=== PATIENT | male | born 1945 | race Caucasian/White ===

== ENCOUNTER 2017-02-23 20:17 | Emergency (ER) | payer OTHER ==
[~2017-02-23] VITALS: Ht 177.8 cm; Wt 106.6 kg
[~2017-02-23 20:17] MED LIST: ACID REDUCER20 MG PO; ALDACTONE25 MG PO; ALDACTONE50 MG PO; ALLOPURINOL 30300 M1 PO; ANTACID MAXIMU355 ML PO; ASPIRIN BUFFER325 M1 PO; ATIVAN1 MG PO; BENADRYL25 MG PO; BISACODYL SUPP10 MG RECTAL; COLACE100 MG PO; DEX4 GLUCOSE1 EACH PO; DEXTROSE 5025 GM/SYR IV PUSH; FLOMAX0.4 MG PO; GLUCAGEN1 MG IM; GLUCOPHAGE1000 MG PO; HYDROCODON-ACE1 EAC5 PO; HYDROCODON-ACE1 EAC7 PO; K-DUR 20 MEQ T20 MEQ PO; KLOR-CON 1010 MEQ PO; LEVEMIR SUBQ; LIDODERM 5%1 PATC1 TOP; MAG DELAY64 MG PO; METFORMIN HCL500 MG PO; METOLAZONE 5 MG5 MG PO; MOM PO; NOVOLOG100 UNIT/1 SQ; PERCOCET 5-3251 EACH PO; PROTONIX40 M2 PO; SENNA PO; SKELAXIN 800 M800 M1 PO; SONATA10 MG PO; SORINE80 MG PO; TEARS NATURALE1 EACH OPHTHALMIC; TESSALON PERLE100 M1 PO; TRINATE TABLET1 TAB PO; TYLENOL325 MG PO; VITAMIN B-1100 M1 PO; WELLBUTRIN SR150 MG PO; XOPENEX0.63 MG/3 IH; ZAROXOLYN10 MG PO
== END 2017-02-23 22:52 | disposition home or self-care (01) ==
LOC: ER 20:17
DX: S01.311A Laceration without foreign body of right ear, initial encounter (principal); S00.431A Contusion of right ear, initial encounter; I11.0 Hypertensive heart disease with heart failure; I50.9 Heart failure, unspecified; K21.9 Gastro-esophageal reflux disease without esophagitis; G47.00 Insomnia, unspecified; N40.0 Benign prostatic hyperplasia without lower urinary tract symptoms; E78.5 Hyperlipidemia, unspecified; F41.9 Anxiety disorder, unspecified; M41.9 Scoliosis, unspecified; M19.90 Unspecified osteoarthritis, unspecified site; Z88.5 Allergy status to narcotic agent; W22.8XXA Striking against or struck by other objects, initial encounter; Y93.89 Activity, other specified; Y92.89 Other specified places as the place of occurrence of the external cause; Y99.9 Unspecified external cause status

== ENCOUNTER 2017-03-04 17:24 | Emergency (ER) | payer OTHER ==
[~2017-03-04] VITALS: Ht 177.8 cm; Wt 108.0 kg
[2017-03-04] MEDS ORDERED: MOBIC7.5 MG PO (18:39)
== END 2017-03-04 19:34 | disposition home or self-care (01) ==
LOC: ER 17:24
DX: S66.911A Strain of unspecified muscle, fascia and tendon at wrist and hand level, right hand, initial encounter (principal); S20.211A Contusion of right front wall of thorax, initial encounter; W18.30XA Fall on same level, unspecified, initial encounter; Y93.89 Activity, other specified; Y92.89 Other specified places as the place of occurrence of the external cause; Y99.9 Unspecified external cause status; I11.0 Hypertensive heart disease with heart failure; E11.42 Type 2 diabetes mellitus with diabetic polyneuropathy; N40.0 Benign prostatic hyperplasia without lower urinary tract symptoms; K21.9 Gastro-esophageal reflux disease without esophagitis; I50.9 Heart failure, unspecified; M19.90 Unspecified osteoarthritis, unspecified site; G47.00 Insomnia, unspecified; F41.9 Anxiety disorder, unspecified; E78.5 Hyperlipidemia, unspecified; I48.91 Unspecified atrial fibrillation; Z88.5 Allergy status to narcotic agent

== ENCOUNTER 2017-08-31 16:52 | Emergency (ER) | payer OTHER ==
[~2017-08-31] VITALS: Ht 177.8 cm; Wt 104.3 kg
[~2017-08-31 16:52] MED LIST changes: +MOBIC7.5 MG PO
== END 2017-08-31 18:53 | disposition home or self-care (01) ==
LOC: ER 16:52
DX: S01.01XA Laceration without foreign body of scalp, initial encounter (principal); E11.9 Type 2 diabetes mellitus without complications; I50.9 Heart failure, unspecified; M17.0 Bilateral primary osteoarthritis of knee; M16.0 Bilateral primary osteoarthritis of hip; K21.9 Gastro-esophageal reflux disease without esophagitis; I10 Essential (primary) hypertension; M41.9 Scoliosis, unspecified; M47.9 Spondylosis, unspecified; G89.29 Other chronic pain; F41.9 Anxiety disorder, unspecified; F32.9 Major depressive disorder, single episode, unspecified; E78.5 Hyperlipidemia, unspecified; N40.0 Benign prostatic hyperplasia without lower urinary tract symptoms; I48.91 Unspecified atrial fibrillation; G20 Parkinson's disease; Z88.6 Allergy status to analgesic agent; W19.XXXA Unspecified fall, initial encounter; Y93.89 Activity, other specified; Y92.89 Other specified places as the place of occurrence of the external cause; Y99.8 Other external cause status

== ENCOUNTER 2018-10-18 12:07 | Inpatient (IN) | payer OTHER ==
[2018-10-18] MEDS ORDERED: ALLOPURINOL 10100 M3 PO (13:01)
[2018-10-18] MEDS ORDERED: PROTONIX40 M1 PO (13:02)
[2018-10-18] MEDS ORDERED: CHILDREN'S ASPI81 M1 PO (13:03)
[2018-10-18] MEDS ORDERED: ERGOCALCIF50000 UNIT PO (13:05)
[2018-10-18] MEDS ORDERED: LEXAPRO 10 MG T10 M2 PO ×2 (13:07→22:03)
[2018-10-18] MEDS ORDERED: SINEMET 25-1001 EAC1 PO (13:08)
[2018-10-18] MEDS ORDERED: VITAMIN D1000 UNI1 PO (13:10)
[2018-10-18] MEDS ORDERED: ALBUTEROL2.5 MG/31 INH (13:13)
[2018-10-18] MEDS ORDERED: HYDROCODON-ACE1 EAC7 PO (15:04)
[2018-10-18] MEDS ORDERED: POTASSIUM20 PO (15:06)
[2018-10-18] MEDS ORDERED: ATIVAN0.5 MG PO (15:08)
[2018-10-18 21:11] VITALS: BP 126/69
[2018-10-19 05:37] LABS: HEMATOCRIT 33.2 % (42.0-52.0); HEMOGLOBIN 11.4 gm/dL (14.0-18.0); MCHC 34.3 g/dL (28.0-37.0); MCV 99.1 fL (80.0-100.0); RBC 3.35 mil/uL (4.50-6.00); RDW 14.4 % (10.5-14.5); WBC 8.8 thou/uL (4.0-11.0)
[2018-10-19 06:00] LABS: CALCIUM 8.7 mg/dL (8.5-10.1); CREATININE 0.7 mg/dL (0.7-1.3); POTASSIUM 3.7 mmol/L (3.5-5.1)
--- NOTE | 2018-10-19 07:53 | NUR ---
patient admitted from [facility]. transported via medical van/cart. alert, oriented, forgetful. diagnosed with supernuclear palsy so movements and speech slowed. uses speech board. abd lap sites x 3 with Wagner drain (total 80ml serosang output during shift) denies pain. spouse says that he can feed himself mostly finger foods due to limited dexterity. junito guzman [employer] aware of admit, saw patient.
[2018-10-19 08:15] VITALS: BP 116/65
--- NOTE | 2018-10-19 13:00 | NUR ---
cm visited with pt and at bedside. pt would open and close eye during visit. intro to cm, team meeting and transiting of care. "3 step wide to enter home and then all main level. he has electric wheel chair, fww, transfer chair, takes btx 1 to 2 times per day. has oxygen 2L at bedtime. been to rehab here in 2013 and glad he was able to come here for rehab."/ seth. had eval right before yulia had to go into hospital with phoarlen , he will need rehab when he goes home not sure who we would use since never had any tx just eval prior to hospital. will cont following as needed for dc needs
--- NOTE | 2018-10-19 13:07 | NUR ---
Nutrition: pt admitted to rehab unit with Parkinsons, progressive supranuclear palsy and seen per consult. Recent lap gangrenous cholecystectomy on 10/09 and sepsis dx. reports good appetite but limited use of utensils with above dx/limited dexterity. Eats with his fingers and she cuts up most foods. Currently on Chopped diet/ADA. Knows how to order meals for pt. No current weight taken however reports it is 220#. Weights were over 300# 6 years ago but pt intentionally lost weight at time of DM dx. No recent significant change. Low nutrition risk.
--- NOTE | 2018-10-19 19:55 | NUR ---
ASSUME PT CARE AT 0700. VSS ON RA BUT ON LOWER SIDE. NOTIFIED VIRGEN THAT PT IS ON SOTALOL 80MG BID. SAID PT'S B/P ALWAYS LOW, BUT HIGH WHEN HE CAME TO ER AND NOW LOW AGAIN. OBTAIND PARAMETER FOR B/P. HELD SOTALOL TODAY PER VIRGEN ORDERED. ENCOURAGED PT TO DRINK MORE FLUID. PT UP TO DINNING FOR BREAKFAST AND LUNCH. WAS AT BED SIDE AT DINNER. PT ALERT, HAS SLURRED AND SLOW SPEECH. USES SPEECH BOARD TO COMMUNICATE WITH AND STAFF. ABD LAP SITES X3 DOMENIC. NOEL DRAIN ON RLQ HAD 80CC SEROSAN OUTPUT THIS SHIFT. DRESSING CHANGED D/T SOAK WITH DRAINAGE. DENIES PAIN, SOB. UP WITH A WALKER. WALKS SLOW. ASSISTED TO BATHROOM PER REQUEST. HAD LARGE BM TODAY. ABLE TO USES URINAL WITH ASSISTANCE. OFFERED SUPPORTIVE CARE. LABS AND VITAL SIGNS MONITOR. MEDS GIVEN. PT AND REQUESTS FOR ATIVAN AT HS. PT USES FINGER FOOD, CALLED DOWN TO [facility] BUT PT CAN'T HAVE CHICKEN STRIPPED OR PIZZA D/T BE ON CARB AND HH. NOTIFIED VIRGEN AND OBTAINED ORDER FOR ATIVAN AND REG DIET FOR PT SINCE PT HAS POOR APPETITE. CONTINUE TO GIVE SINEMET ORDERED. BS MONITOR, MEDS GIVEN. PT DENIES PAIN, SOB, N/V. FALL PRECAUTION IN PLACE. CALL LIGHT WITHIN REACH. BED LOW. GAVE REPORT TO NIGHT NURSE TO CONTINUE TO MONITOR.
[2018-10-19 21:29] VITALS: BP 127/53
[2018-10-20 04:06] LABS: GLYCOHEMOGLOBIN (HGB A1C) 5.3 % (4.8-5.6)
--- NOTE | 2018-10-20 04:57 | NUR ---
able to sit up on side of the bed to eat evening meal. improved alertness, slightly better ability to communicate verbally effectively. used word board once in bed, more drowsy. no difficulty taking evening meds. denied pain. NOEL drain - 40ml serosanguinous drainage. abd lap sites, Noel drain dressing D/I. incontinent during the night. discussed ways to improve use of urinal such as calling staff to hold urinal since his dexterity is reduced. able to use call light, turn overhead lights on and off. possible fatigue from todays activities, did not call nurses station and denied need to use urinal when asked.
[2018-10-20 08:30] VITALS: BP 113/63
--- NOTE | 2018-10-20 09:01 | NUR ---
ASSUME PT CARE AT 0700. VSS ON RA B/P 113/63, HR 80. HELD SOTALOL PER ORDERED. ENCOURAGED PT TO DRINK MORE FLUID. OT GAVE PT BED BATH THIS AM. PT UP TO DINNING FOR BREAKFAST WITH SPEECH THERAPY PT ALERT, HAS SLURRED AND SLOW SPEECH. USES SPEECH BOARD TO COMMUNICATE WITH AND STAFF. ABD LAP SITES X3 CROWN PERFORATOR OPERATOR. NOEL DRAIN ON RLQ HAD 30CC SEROSAN OUTPUT THIS SHIFT. DRESSING C/D/I HAD LITTLE DRAINAGE AROUND. TENDER AT THE SITE. WILL CONTINUE TO MONITOR FOR INFECTION. DENIES PAIN, SOB. UP WITH A WALKER. WALKS SLOW. ASSISTED TO BATHROOM PER REQUEST. ABLE TO USES URINAL WITH ASSISTANCE. OFFERED SUPPORTIVE CARE. MEDS GIVEN. BS MONITOR, MEDS GIVEN. PT DENIES PAIN, SOB, N/V. FALL PRECAUTION IN PLACE. CALL LIGHT WITHIN REACH.
[2018-10-20 19:56] VITALS: BP 128/62
--- NOTE | 2018-10-21 05:35 | NUR ---
PT LYING IN BED. DENIES PAIN. REMAINS INCONTINENT. RESTING COMFORTABLY. NO NEEDS VOICED. CALL LIGHT WITHIN REACH. WILL CONTINUE TO PROVIDE FREQUENT OBSERVATION.
[2018-10-21 08:24] VITALS: BP 113/70
--- NOTE | 2018-10-21 10:04 | NUR ---
ASSUMED CARE AT 0700. PATIENT IS ALERT AND ORIENTED. PATIENT HAS EXPRESSIVE APHAGIA. PATIENT HAS GOOD COIL FORMER BILATERALLY. PATIENT UP IN HIS W/C AND OUT TO THE DINING ROOM. PATIENT TOOK MEDS IN APPLESAUCE. LUNGS ARE CLEAR AND DEMINISHED. ABD IS SOFT WITH BSX4. UP TO THE BATHROOM WITH P.T. FALL AND SAFETY PROTOCOLS IN PLACE. DENIES ANY PAIN AT THIS TIME. CONTINUES TO PROGRSS SLOWLY TOWARDS D/C GOALS. WILL CONTINUE TO MONITER.
--- NOTE | 2018-10-21 14:10 | NUR ---
CONSULT CALLED FOR DR. YORK TO F/U ON HIS LAP/WALT PATIENT THAT WAS ADMITTED TO [facility] ON 10/18/[address] YORK WILL FOLLOW HIS PATIENT AND WE WILL CONTINUE TO MONITER HIS NOEL DRAIN.
--- NOTE | 2018-10-21 15:13 | HC ---
[facility] [place] [address] CONSULTATION Name: ALCIDES ROWAN Room #: 515-P [facility] IN M.R.#: [id number] Admission: 10/18/18 Attend Phys: Ivan Alberts MD Discharge: Date of : 43 Report #: [id number] THIS REPORT FOR: //name// CC: Ivan Nieto DATE OF SERVICE: 10/20/2018 NEUROBEHAVIORAL STATUS EXAMINATION ATTENDING PHYSICIAN: Ivan Alberts MD. SALES HOST: Torsten Meza, PhD. CLINICAL PRESENTATION: The patient is a 73-year-old male admitted to the [facility] Rehabilitation Unit for comprehensive inpatient rehabilitation program to improve functional mobility, activities of daily living and self-care and mental status secondary to deficits from progressive supranuclear palsy. The patient is recently recovering from surgery for a gangrenous gallbladder. The diagnosis includes a recent gangrenous cholecystitis with severe sepsis and he is status post laparoscopic cholecystectomy on 10/09/2018. His diagnoses on admission to rehab. include diabetes mellitus type 2, hypertension, hyperlipidemia, depression and anxiety and gastroesophageal reflux disease. The patient also has a past history of severe alcohol abuse. Alcohol use was discontinued about 4 years ago. Neuropsychological assessment was requested to assist in diagnosis and treatment planning. The patient is and has 2 children. His provides 24-hour care as needed. 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 His reported that the alcohol abuse was severe until about 4 years ago when he discontinued. She describes him as having had multiple falls in the last several months. His functioning was much better until about 12 months ago. Severe changes in verbal fluency and expressive speech is within the last several months. His deterioration in cognition has about a 6-month overall period of duration. TECHNIQUES UTILIZED: Clinical interview, review of medical records, staff consultation and behavioral observation, family interview -- , subtest of the mini mental status exam 2. EXAMINATION FINDINGS: The patient was alert and cooperative with the assessment. Severe deficits in verbal expression interfere with his ability to identify symptoms and express wants and needs. He attempted use of [facility] [address] [place] [address] CONSULTATION Name: HARPALALCIDES RAMAN Room #: 515-P [facility] IN .R.#: [id number] Admission: 10/18/18 Attend Phys: Ivan Alberts MD Discharge: Date of : 43 Report #: [id number] communication board, but with poor success. The patient denies depression, but does indicate anxiety. Frustration with his limitations is described as severe. Anxiety has been a primary concern for the patient and his . He does not report auditory or visual hallucinations. Auditory comprehension appears within normal limits. Deficits are severe in verbal expression. His performance on the mini mental status exam indicate that he is oriented to time and place. Auditory memory is very difficult to assess at this time. His does not feel he is quite back to normal yet. The patient likely had a delirium following his cholecystectomy. Further performance on mental status exam suggests that reading and ability to follow the written commands are within normal limits. Auditory comprehension appears within normal limits. Motor expression and anterior functioning is severely impaired. 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 Unspecified depressive disorder with anxiety. RECOMMENDATIONS: The patient may benefit from a change in his antidepressant. He has been taking citalopram for several years. He appears fidgety and restless. Arranging his environment so as to maintain optimal independence will assist his overall adjustment and management of his condition. Verbal praise and complements about his individual success in achieving therapeutic goals will also be of benefit to maintain motivation. Educational information to the patient and family in regard to the prolonged recovery that often occurs with Parkinson's disease following surgical procedures or emergent medical care. Thank you very much for allowing me to provide the consultation on this patient. <ELECTRONICALLY SIGNED> By: Torsten Meza, PhD 10/21/18 1513 [id number] Torsten Meza, PhD /nt
--- NOTE | 2018-10-21 19:04 | NUR ---
NOEL DRAIN HAD 60 CC OF SEROUS FLUID FROM THE DRAIN. NOEL WAS RECOMPRESSED
[2018-10-21 19:15] VITALS: BP 111/54
--- NOTE | 2018-10-22 03:23 | NUR ---
PT LYIMG IN BED. REMAINS INCONTINENT. DENIES PAIN. RESTING COMFORTABLY. NO NEEDS VOICED. CALL LIGHT WITHIN REACH. WILL CONTINUE TO PROVIDE FREQUENT OBSERVATION.
[2018-10-22 05:36] LABS: HEMATOCRIT 33.3 % (42.0-52.0); HEMOGLOBIN 11.4 gm/dL (14.0-18.0); MCHC 34.1 g/dL (28.0-37.0); MCV 99.5 fL (80.0-100.0); RBC 3.34 mil/uL (4.50-6.00); RDW 14.9 % (10.5-14.5); WBC 7.4 thou/uL (4.0-11.0)
[2018-10-22 06:04] LABS: ALBUMIN 2.8 g/dL (3.4-5.0); CALCIUM 8.5 mg/dL (8.5-10.1); CREATININE 0.6 mg/dL (0.7-1.3); POTASSIUM 3.9 mmol/L (3.5-5.1); TOTAL BILIRUBIN 0.9 mg/dL (<0.1-1.0); TOTAL PROTEIN 5.6 g/dL (6.4-8.2)
[2018-10-22 07:40] VITALS: BP 101/55
--- NOTE | 2018-10-22 16:12 | NUR ---
ASSUMED CARE AT 0700. DR. YORK CAME TO SEE PT TODAY AND SAID CONTINUE TO MONITOR DRAINAGE (I&0 0600,1800) REMOVE GHADA DRAINAGE IS LESS THAN 50CC PER 24HR. DRESSING SOAK WITH SEROUS DRAINAGE FROM AND AROUND GHADA DRAINAGE AND HE SAID LONG THERE IS NO BILIOUS DRAINAGE PRESENT PT IS OK. DRESSING CHANGED. PATIENT IS ALERT AND ORIENTED. PATIENT HAS EXPRESSIVE APHAGIA. PATIENT HAS GOOD CLOTH FOLDER MACHINE BILATERALLY. PATIENT UP IN HIS W/C AND OUT TO THE DINING ROOM. ASSISTED WITH SETTING UP. PT ABLE TO FEED SELF WITH CUEING. PREFERS FINGER FOOD.PATIENT TOOK MEDS IN APPLESAUCE. REASSESSMENT PER CHART.LUNGS ARE CLEAR AND DIMINISHED. ABD IS SOFT WITH BSX4. HAD LARGE BM TODAY. CONTINUE TO BE ON COLACE DAILY.UP TO THE BATHROOM FOR TOILETING. B/P 101/55, HR 66. HELD SOTALOL PER B/P PARAMETER. ENCOURAGED PT TO DRINK MORE FLUID. NOTED PT HAS CANKER SORE IN MOUTH AND RASHES AROUND PERINEAL AREAS. NOTIFIED VIRGEN. SHE SAID OK FOR PT TO USE MAGIC MOUTHWASH THAT PT'S BROUGHT IN. BARRIER CREAM APPLIED BY NOW. FALL AND SAFETY PROTOCOLS IN PLACE. DENIES ANY PAIN AT THIS TIME. CONTINUES TO PROGRESS SLOWLY TOWARDS D/C GOALS. WILL CONTINUE TO MONITOR.
[2018-10-22 16:45] VITALS: BP 131/75
[2018-10-22 19:59] VITALS: BP 118/54
--- NOTE | 2018-10-23 01:01 | NUR ---
PATIENT ASSESSED AND IS ALERT. NON-SPEAKING USES HIS BOARD FOR HIS COMMUNICATION NEEDS. FINE MOTORS SKILLS ARE EFFECTED. UP WITH WALKER WITH 1 PERSON ASSIST, HAD A GALLBLADDER REMOVED HAS A RIGHT LOWER NOEL-DRAIN THAT HAS SEROUS DRAINAGE. DRESSING CHANGED AND IS WAITING FOR TEGADERM DRESSING. TAKES MEDS WELL IN APPLESAUSE. LUNGS CTA-DISM. DURABOND TO THE INCISIONS. NO DRAINAGE NOTED FROM SITES ON ABDOMEN. DENIES ANY PAIN OR NAUSEA. TURNED Q 2 HOURS AND PRN FOR COMFORT. CONT PLAN OF CARE.
[2018-10-23 08:39] VITALS: BP 109/53
--- NOTE | 2018-10-23 13:03 | NUR ---
team meeting recommendation : use communication board, has working on getting ipad with communication board. re-team with possible dc [facility]rd home with [facility] ( pt, ot,st, and nursing).
--- NOTE | 2018-10-23 16:04 | NUR ---
FAXED REFERRAL TO [facility] ANGELIQUE LEFT MSG WITH CONNOR IN ADM, THAT REFERRAL FAXED AND ANTICIPATE DISCHARGE 10/31/18. DCP TO FOLLOW.
[2018-10-23 19:44] VITALS: BP 117/55
--- NOTE | 2018-10-23 19:44 | NUR ---
ASSUMED CARE AT 0700. PATIENT IS ALERT AND ORIENTED. PATIENT HAS EXPRESSIVE APHAGIA. USES BOARD TO COMMUNICATE. PATIENT HAS GOOD SUPERVISOR BODY ASSEMBLY BILATERALLY. BUT NOT FINE MOTOR. PATIENT UP IN HIS W/C AND OUT TO THE DINING ROOM WITH MIN ASSIST AND CUEING. HAS GOOD APPETITE. PT ABLE TO FEED SELF. PATIENT TOOK MEDS IN APPLESAUCE. LUNGS ARE CLEAR AND DIMINISHED. ABD IS SOFT WITH BSX4. LAST BM WAS YESTERDAY ON DAILY COLACE. RLQ NOEL DRAINAGE INTACT HAD 25 SEROUS DRAINAGE DURING THIS SHIFT. DRESSING CHANGED EARLIER. IT IS C/D/I NOW. FALL AND SAFETY PROTOCOLS IN PLACE. DENIES ANY PAIN AT THIS TIME. CONTINUES TO PROGRSS SLOWLY TOWARDS D/C GOALS. GAVE REPORT TO NIGHT NURSE TO CONTINUE TO MONITOR.
--- NOTE | 2018-10-24 03:01 | NUR ---
ASSUMED CARE OF PT AT 1915. DENIES PAIN, NAUSEA OR DYPSNEA. PT ATTEMPTING TO SPEAK, BUT SPEECH IS GARBLED AND SLOW. WAS SUCCESSFUL IN SPELLING WORDS USING ALPHABET. INCONT LARGE AMOUNTS OF URINE. PO MEDS TAKEN IN APPLESAUCE WITHOUT DIFFICULTY. HAS APPEARED TO BE SLEEPING WHEN CHECKED ON HOURLY ROUNDS. BED ALARM ON.
[2018-10-24 08:00] VITALS: BP 119/65
--- NOTE | 2018-10-24 10:34 | NUR ---
cm was stopped by pt this am rt dc question on time, " when will he be released next monday and looking in to some help couple days at week ?"/freya. education on having dr completed dc orders, senior blue book, visiting angles, and nurse completed dc paper work and if there is specif time to let staff know and will have dc completed. " i think late morning becuase he not morning person. well now he is wanting to leave in morning, will be better and his brother can help me get him in to house"/. infromation passed on to bedside nurse. will cont following as needed for dc needs.
[2018-10-24 10:42] VITALS: BP 119/65
--- NOTE | 2018-10-24 11:37 | NUR ---
ASSUMED CARE AT APPROX 0715. PATIENT AWAKE. ORIENTED TO PERSON. VERBALIZES FEW WORDS, USES COMMUNICATION BOARD PRIMARY METHOD OF COMMUNICATING NEEDS, GESTURES APPROPRIATELY. PATIENT C/O BEING ITCHY, SKIN ASSESSED, LOTION APPLIED. REDNESS TO GROIN NOTED- PROVIDER ORDERED NYSTATIN POWDER, BRIEFS REMOVED TO ALLOW SKIN TO REST. INCONTINENT OF URINE. NOEL DRAIN TO RIGHT UPPER QUADRANT, SITE ASSESSED, SLIGHTLY PINK, SITE CLEANED AND DRESSING TO SITE CHANGED, SATURATED WITH SEROUS DRAINAGE, NEW DRESSIN C/D/I. DRAIN SUTURED TO SKIN. PATIENT PARTICIPATING IN THERAPY. UP TO CHAIR FOR MEALS. FALL PRECAUTIONS IN PLACE. WILL CONTINUE TO MONITOR.
[2018-10-24 19:34] VITALS: BP 118/54
--- NOTE | 2018-10-25 03:59 | NUR ---
ASSUMED CARE OF PT AT 1915. PT ABLE TO COMMUNICATE NEEDS USING SHEET PROVIDED BY . PT DENIES PAIN, NAUSEA OR DYPSNEA. HAS BEEN INCONT OF LARGE AMOUNTS OF URINE. RED FUNGAL-APPEARING RASH NOTED IN BILAT GROIN AREAS, NYSTATIN POWDER APPLIED. PO MEDS TAKEN WITHOUT DIFFICULTY IN APPLESAUCE. HAS APPEARED TO BE SLEEPING WHEN CHECKED ON HOURLY ROUNDS. BED ALARM ON.
[2018-10-25 07:51] VITALS: BP 117/55
--- NOTE | 2018-10-25 11:23 | H ---
[facility] [place] [address] HISTORY AND PHYSICAL Name: ALCIDES ROWAN Room #: 515-P ADM IN M.R.#: [id number] Admission: 10/18/18 Attend Phys: Ivan Alberts MD Discharge: Date of : 43 Report #: [id number] THIS REPORT FOR: //name// CC: Ivan Nieto DATE OF SERVICE: 10/19/2018 HISTORY AND PHYSICAL/POST ADMISSION PHYSICIAN EVALUATION HISTORY OF PRESENT ILLNESS: The patient is a 73-year-old white male with a past medical history of Parkinson's disease, progressive supranuclear palsy, diabetes, was cared for at [facility] status post acute laparoscopic gangrenous cholecystectomy on 10/09/2018. He was treated for severe sepsis. He was found to be in atrial fibrillation with rapid ventricular rate and started on a Cardizem drip. He was followed by Cardiology, who presumed it to be multifocal atrial tachycardia. He was also followed by Dr. Spencer in surgery. He was treated with multiple IV antibiotics. He was noted to have a significant functional decline from his premorbid level and has now been admitted for acute in-hospital inpatient rehabilitation. PAST MEDICAL HISTORY: Includes Parkinson's disease, progressive supranuclear palsy, subdural hematoma in 2014, severe sepsis as noted above, diabetes mellitus. He has had a prior history of falls with a hemothorax, depression, anxiety, degenerative arthritis, gout, and GERD. PAST SURGICAL HISTORY: Includes cholecystectomy, hernia repair, tonsillectomy, and left knee surgery. HABITS: Prior history of heavy alcohol use, quit 4 years ago. No history of tobacco abuse. ALLERGIES: MORPHINE, apparently causes vomiting. SOCIAL HISTORY: Lives with his , three steps in. is the caregiver. He has an electric wheelchair at home, a scooter in the community. He was able to ambulate a short distance with the assisting and using the walker. He premorbidly was around a mod assist for basic transfers. REVIEW OF SYSTEMS: He did not offer any current complaints of chest pain, shortness of breath, abdominal discomfort. No focal extremity pain complaints. Does have some incontinence episodes and is utilizing adult pull-ups. PHYSICAL EXAMINATION: GENERAL: He is a 73-year-old white male in no obvious distress. VITAL SIGNS: Last recorded temperature 98.1, pulse 70, respirations 18, and [facility] [address] [place] [address] HISTORY AND PHYSICAL Name: ALCDIES ROWAN Room #: 515-P [facility] IN .R.#: [id number] Admission: 10/18/18 Attend Phys: Ivan Alberts MD Discharge: Date of : 43 Report #: [id number] blood pressure 126/69. NEUROLOGIC: The patient is alert. He is pleasant. He has severe extraocular movement decreased especially with superior gaze. Evidence of masked facies. Decreased verbalization. He can follow basic 1 step commands without difficulty. CHEST: Sounded clear to auscultation. CARDIAC: Regular rate and rhythm. ABDOMEN: He has the abdominal binder in place. Upon removal, the incisions appear to be healing. There is some erythema right lower quadrant that appears to be decreasing. No specific tenderness. Bowel sounds are positive. Again, he has the adult pull-ups. He does have some rigidity of both upper and lower extremities. Some resting tremor is noted. I could not detect any obvious cogwheeling, but he has no rigidity. Strength is probably a grade 3+/5 to 4-/5 both upper and lower extremities. DTRs are decreased. He was able to sit to stand, needing mod to max assist and took a few steps with a walker with a very heavy plotting gait and variable step length. ASSESSMENT: A 73-year-old white male with the following problems: 1. Severe Parkinson's disease. 2. Progressive supranuclear palsy. 3. Recent gangrenous cholecystitis with severe sepsis, status post laparoscopic cholecystectomy, 10/09/2018. 4. Diabetes mellitus type 2. 5. Hypertension. 6. Hyperlipidemia. 7. Depression, anxiety. 8. Gastroesophageal reflux disease. PLAN: The patient was admitted for acute in-hospital inpatient rehabilitation stay. From a postadmission physician evaluation perspective, there are no relevant changes since the preadmission screening. Please see the above review of prior and current medical and functional conditions and comorbidities. Please see the patient's previous and current functional status. As far as risk of complications, the patient has multiple medical comorbidities as noted above. Initial plan of care involves the interdisciplinary acute inpatient rehabilitation program with goal of maximizing the patient's functional independence, so that he can hopefully return back to his prior living situation. Measurable functional goals would be for the patient to become modified independent with transfers, mobility and ADLs as well as cognitive issues and assessment of swallow. The goal is to become as independent as possible, transitional and mobility so that he can return back to the home setting. Prognosis is reasonably good with estimated length of stay probably at [facility] [address] [place] [address] HISTORY AND PHYSICAL Name: ALCIDES ROWAN Room #: 515-P ADM IN M.R.#: [id number] Admission: 10/18/18 Attend Phys: Ivan Alberts MD Discharge: Date of : 43 Report #: [id number] least 7-14 days pending progress. Potential barriers would include his multiple medical comorbidities and decreased functional status. <ELECTRONICALLY SIGNED> By: Ivan Alberts MD 10/25/18 1123 [id number] Ivan Alberts MD /nt
--- NOTE | 2018-10-25 17:27 | NUR ---
ASSUMED CARE AT APPROX 0715. PATIENT AWAKE. ORIENTED TO PERSON. NON-VERBAL. USES COMMUNICATION BOARD. FOLLOWS COMMANDS, GESTURES APROPRIATELY. VSS. PARTICIPATED IN THERAPY. OUT TO DINING ROOM FOR ALL MEALS. NOEL DRAIN DRESSING CHANGED THIS DATE. 20 ML OUTPUT SEROSANGUINOUS DRAINAGE. NYSTATIN POWDER APPLIED TO GROIN. STOOL SOFTNERS PROVIDED- LAST DOCUMENTED BM 10/22. PATIENT DENIES ABDOMINAL PAIN, ABDOMEN SOFT, BOWEL SOUNDS ACTIVE. PATINET USES ADAPTIVE EQUIPMENT FOR MEALS, STAFF INSTRUCTED TO RETURN THOSE TO PATIENT'S ROOM AFTER EACH USE. FALL PRECAUTIONS IN PLACE. WILL CONTINUE TO MONITOR.
[2018-10-25 19:46] VITALS: BP 127/70
--- NOTE | 2018-10-26 03:29 | NUR ---
ASSESSMENT: PT REMAIN ALERT AND ORIENT TIMES 3, NO-VERBAL BUT USES COMMUNICATION BOARD APPROPRIATELY. DENIES PAIN. VSS, AFEBRILE. UP TO BR WITH GB/WC. HAD A LARGE BM THIS SHIFT. SLEPT MOST OF THE NIGHT. NOEL DRAIN WITH SEROUS DRAINAGE, >30 CC AT THIS TIME. JAIME WANTS ST TO GIVE HER A CALL TOMORROW. TOLERATING TAKING PILLS WITH APPLE SAUCE. PT VERY SLOW TO MOVE BUT FOLLOWS COMMANDS APPROPRIATELY. SLOW PROGRESS TOWARDS DC GOALS, WILL CONTINUE TO MONITOR. AN OCCASSIONAL MON-PRODUCTIVE COUGH NOTED.
[2018-10-26 05:34] LABS: ABSOLUTE NEUTROPHILS 2.9 thou/uL (1.4-8.2); BASOPHILS 1.1 % (0.0-2.0); EOSINOPHILS 4.2 % (0.0-3.0); HEMATOCRIT 33.8 % (42.0-52.0); HEMOGLOBIN 11.6 gm/dL (14.0-18.0); LYMPHOCYTES 29.8 % (24.0-44.0); MCH 34.1 pg (26.0-34.0); MCHC 34.2 g/dL (28.0-37.0); MCV 99.5 fL (80.0-100.0); MONOCYTES 9.2 % (1.0-8.0); PLATELET COUNT 299 thou/uL (150-400); POLYS 55.7 % (36.0-66.0); RBC 3.39 mil/uL (4.50-6.00); RDW 15.8 % (10.5-14.5); WBC 5.3 thou/uL (4.0-11.0)
[2018-10-26 06:00] LABS: CALCIUM 8.6 mg/dL (8.5-10.1); CREATININE 0.6 mg/dL (0.7-1.3); MAGNESIUM 1.9 mg/dL (1.8-2.4); POTASSIUM 3.8 mmol/L (3.5-5.1); TOTAL BILIRUBIN 0.7 mg/dL (<0.1-1.0); TOTAL PROTEIN 5.8 g/dL (6.4-8.2)
[2018-10-26 08:46] VITALS: BP 112/65
--- NOTE | 2018-10-26 10:53 | NUR ---
ASSUMED CARE AT 0700. PATIENT IS ALERT AND ORIENTED, BUT HAS EXPRESSIVE APHAGIA. PATIENT USES A COMMUNICATION SHEET TO COMMUNICATE NEEDS. PATIENT IS UP TO W/C WITH ASSIST OF 1 WITH PIVOT TRANSFER. PATIENT LUNGS ARE CLEAR AND DEMINISHED. ABD IS SOFT WITH BSX4. PATIENT HAS NOEL DRAIN, NOC NURSE REPORTED 25CC OUT. NOEL IS COMPRESSED AND DRAINING SMALL AMOUNT OF SEROUS LIQUID INTO THE DRAIN. DRESSING IS CLEAN AND DRY. PATIENT VOIDS PER URINAL AND IN THE BATHROOM. LEFT GROIN IS PINK FROM INCONTINENCE. GROIN IS BEING TX WITH NYSTATIN POWDER. FALL AND SAFETY PROTOCOLS IN PLACE. DENIES PAIN AT THIS TIME. CONTINUES TO WORK WITH THERAPY. WILL CONTINUE TO MONITER.
--- NOTE | 2018-10-26 12:57 | NUR ---
Nutrition: Pt seen per followup. Intake averaging 50-100% of meals. did report pt generally just eats 2 meals/day at home. She orders meals for pt and helps wit set up. ST following for dysphagia. No current weight available. REC obtain if possible. Low nutrition risk.
[2018-10-26 18:20] VITALS: BP 108/68
[2018-10-26 19:35] VITALS: BP 127/68
--- NOTE | 2018-10-27 02:39 | NUR ---
ASSUMED CARE OF PT AT 1915. PT ALERT, ORIENTED TO PERSON AND PLACE. EXPRESSIVE APHASIA CONTINUES, WITH PT ATTEMPTING TO USE SHEET TO SPELL OUT WORDS. AT PT'S REQUEST, HIS WAS CALLED AT 0100, AND SHE THEN RELATED HIS NEEDS TO RN. PT TAKING DRINKS OF TEA AND WATER FROM CUP SUPPLIED BY SPEECH TX. PO MEDS TAKEN WITHOUT DIFFICULTY IN APPLESAUCE. PT DENIES PAIN, NAUSEA OR DYPSNEA. EXTRA 0.5MG TABLET OF ATIVAN GIVEN AT PT'S 'S SUGGESTION, PT HAS APPEARED TO BE SLEEPING SINCE. CHECKED ON HOURLY ROUNDS. FALL PRECAUTIONS IN PLACE.
[2018-10-27 07:45] VITALS: BP 111/74
--- NOTE | 2018-10-27 17:35 | NUR ---
ASSUMED CARE AT APPROX 0715. PATIENT AWAKE. ORIENTED TO PERSON, SITUATION. USING SPEAKING BOARD TO COMMUNICATE, AT BEDSIDE, PATIENT ENCOURAGED TO ATTEMPT VERBALIZING NEEDS AND YES/NO. SWALLOW PRECAUTIONS IN PLACE. PATIENT COUGHING WITH THIN LIQUIDS AT TIMES, ENCOURAGED TO TAKE SMALL SIPS WITH SPEECH THERAPY CUP. PATIENT'S REPORTS DECREASED FOOD INTAKE & INCREASE IN POCKETING. PATIENT SUPERVISED 100% FOR ORAL INTAKE. PARTICIPATED IN THERAPY. DRESSING TO NOEL SITE CHANGED. NOEL DRAIN OUTPUT STILL GREATER THAN 50 ML, DRAIN LEFT IN PLACE THIS SHIFT, SECURED TO CLOTHING. FALL PRECAUTIONS IN PLACE. WILL CONTINUE TO MONITOR.
[2018-10-27 20:20] VITALS: BP 125/62
--- NOTE | 2018-10-28 04:55 | NUR ---
TURNED SIDE TO SIDE WITH FEET ELEVATED TO OFFLOAD HEALS. ROOM WARM FOR PATIENT COMFORT. MEDS WITH APPLESAUCE AND DRINKING THIN FLUIDS LIMITED BY CUP PROVIDED BY SPEECH THERAPY, LUNGS CLEAR. MAGIC MOUTHWASH TO LEFT CANKER SORE. NYSTATIN TO LEFT GROIN AND SCROTUM AFTER NOELLE-CARE. BOTTOM CHECKED AND WIPED WITH SOFT WASHCLOTH. NOEL 50 CC CLEAR YELLOW, SITE CDI, URINAL LEFT IN PLACE FOR 200 CC SHAYLA
[2018-10-28 08:10] VITALS: BP 109/57
--- NOTE | 2018-10-28 09:30 | NUR ---
ASSUMED CARE AT 0700. PATIENT IS ALERT AND ORIENTED, BUT HAS EXPRESSIVE APHASIA. PATIENT HAS COMMMUNIATON BOARD. LUNGS ARE CLEAR AND DEMINISHED. ABD IS SOFT WITH BSX 4. NOEL DRAIN DRESSING DRY AND INTACT. NOEL BULB COMPRESSED. FALL AND SAFETY PROTOCOLS IN PLACE. DENIES ANY PAIN AT THIS TIME. CONTINUES TO PROGESS SLOWLY TOWARDS D/C GOALS. FAMILY AT BEDSIDE. WILL CONTINUE TO MONITER.
[2018-10-28 22:51] VITALS: BP 121/65
--- NOTE | 2018-10-29 04:47 | NUR ---
PT LYING IN BED. VOIDING PER URINAL WITH SOME PERIODS OF INCONTINENCE. DENIES PAIN. RESTING COMFORTABLY. CALL LIGHT WITHIN REACH. WILL CONTINUE TO PROVIDE FREQUENT OBSERVATION.
[2018-10-29 07:50] VITALS: BP 122/78
--- NOTE | 2018-10-29 15:24 | NUR ---
ASSUMED CARE AT APPROX 0715. PATIENT AWAKE. ORIENTED TO PERSON. VERBALIZING SOME WORDS, USES SPEECH BOARD PRIMARY MEANS OF COMMUNICATION. VSS. DENIES PAIN. PARTICIPATING IN THERAPY. TURNED Q2 WHILE IN BED, HEELS ELEVATED WITH PILLOWS. PATIENT UP IN CHAIR FOR MEALS. DIET ORDERS REVIEWED BY SPEECH AFTER VIDEO SWALLOW. FALL PRECAUTIONS IN PLACE. WILL CONTINUE TO MONITOR.
[2018-10-29 19:54] VITALS: BP 115/69
--- NOTE | 2018-10-29 22:30 | NUR ---
GIVEN MEDS WITH APPLESAUCE WITH INTERMITTENT SIPS OF NECTAR-THICK APPLESAUCE. LIDOCAINE MIXTURE TO GUMS, WET BRIEF REMOVED, PERICARE FOLLOWED BY NYSTATIN POWDER. PATIENT REMAINS DIFFICULT TO UNDERSTAND, APPRECIATES WARM, DARK ROOM AND SIPS OF APPLE JUICE PLUS A BITE MORE APPLESAUCE THAN NECESSARY FOR MEDS
[2018-10-30 08:38] VITALS: BP 120/60
--- NOTE | 2018-10-30 12:23 | NUR ---
ASSUMED CARE AT 0700. PATIENT IS ALERT AND ORIENTED. PATIENT IS APHASIC. PATIENT PRATT'S. SECURITY MESSENGER ARE EQUAL. LUNGS ARE CLEAR AND DEMINISHED. ABD IS SOFT WITH BSX4. UP TO THE BATHROOM TO VOID AND HAVE BM. UP IN THE CHAIR FOR MEALS NO SKIN ISSUES. FALL AND SAFETY PROTOCOLS IN PLACE. DENIES ANY PAIN. UP WITH 1 STAFF WITH GAIT BELT AND WALKER. DENIES PAIN AT THIS TIME. CONTINUES TO WORK WITH THERAPY. PROGRESSING SLOWLY TOWARDS D/C GOALS. WILL CONTINUE TO MONITER.
--- NOTE | 2018-10-30 13:12 | NUR ---
team meeting, recommendation : cont dc home with assist on , [facility] ( pt, ot, st, nursing,), dec to nectar thick rt, and puree solid and one item that is mech soft. will cont following as needed for dc needs.
--- NOTE | 2018-10-30 13:24 | NUR ---
1310- RIGHT NOEL DRAIN REMOVED ORDERED PER TITI RAYMOND. 10ML SEROUS DRAINAGE EMPTIED PRIOR TO REMOVAL. DRAIN REMOVED WITHOUT DIFFICULTY, NO DRAINAGE NOTED ON REMOVAL. SITE CLEANED,BAND AID DRESSING APPLIED. EDUCATED PATIENT AND PATIENT'S ON NOEL SITE DRAIN CARE PER HANDOUT(SEE HARD COPY) PATIENT'S STATES UNDERSTANDING OF ALL INFORMATION GIVEN,DENIES FURTHER QUESTIONS.
--- NOTE | 2018-10-30 14:15 | PLAN ---
[facility] [place] [address] REHAB UNIT PLAN OF CARE Name: ALCIDES ROWAN Room #: 515-P ADM IN M.R.#: [id number] Admission: 10/18/18 Attend Phys: Ivan Alberts MD Discharge: Date of : 43 Report #: [id number] THIS REPORT FOR: //name// CC: Ivan Nieto DATE OF SERVICE: 10/20/2018 PROGRESS NOTE/OVERALL PLAN OF CARE SUBJECTIVE: The patient is seen back today in followup. He was in no distress. Last recorded temperature 98.2, pulse 79, respirations 18, blood pressure 113/63. He has been working in therapies with transfers, mod assist. Gait 20 feet mod assist with a front-wheeled walker. In occupational therapy, upper body dressing is max assist with lower body dressing dependent. Speech, he has uczy-bq-echdvkel comprehensive deficits. He has emomndly-je-rewygz cognitive deficits. ASSESSMENT 1. Severe Parkinson's disease. 2. Progressive supranuclear palsy. 3. Recent gangrenous cholecystitis with severe sepsis, status post laparoscopic cholecystectomy, 10/09/2018. 4. Diabetes mellitus type 2. 5. Hypertension. 6. Hyperlipidemia. 7. Depression and anxiety. 8. Gastroesophageal reflux disease. PLAN: The overall plan of care is based on the preadmission screen, post-admission physician evaluation and information garnered from therapy assessments. 1. Estimated length of stay is probably 10 days to 2 weeks pending progress and likely longer if needed. 2. Medical prognosis is reasonably good. 3. Anticipated interventions includes the interdisciplinary acute inpatient rehabilitation program. 4. Anticipated functional outcomes would be for the patient to become modified independent or at least maximal independent with basic transfers, mobility, gait training, ADLs, cognition, so that the can handle him again in the home setting. 5. Discharge destination is back home with . 6. Expected therapy by discipline includes PT, OT and speech 1 hour per day [address] [address] REHAB UNIT PLAN OF CARE Name: ALCIDES ROWAN Room #: 515-P [facility] IN ..#: [id number] Admission: 10/18/18 Attend Phys: Ivan Alberts MD Discharge: Date of : 43 Report #: [id number] each five days a week throughout the duration of the acute inpatient rehabilitation stay. <ELECTRONICALLY SIGNED> By: Ivan Alberts MD 10/30/18 1415 0914 [id number] Ivan Alberts MD /nt
[2018-10-30] MEDS ORDERED: NYAMYC15 GM TOP (16:27)
[2018-10-30] MEDS ORDERED: CELEXA40 MG PO (16:27)
[2018-10-30 19:46] VITALS: BP 115/58
--- NOTE | 2018-10-31 03:37 | NUR ---
ASSUMED CARE OF PT AT 1915. PT INCONT URINE THROUGH THE NIGHT. DENIES PAIN, NAUSEA OR DYPSNEA. PILLS TAKEN IN APPLESAUCE WITHOUT DIFFICULTY. RIGHT ABDOMINAL DRSG C/D/I. ANTICIPATING DISCHARGE LATER TODAY. HAS APPEARED TO BE SLEEPING WHEN CHECKED ON HOURLY ROUNDS. FALL PRECAUTIONS IN PLACE.
[2018-10-31 10:19] VITALS: BP 134/66
[2018-10-31 10:56] VITALS: BP 119/65
[2018-10-31 11:00] VITALS: BP 119/65
[2018-10-31 11:01] VITALS: BP 119/65
--- NOTE | 2018-10-31 11:56 | NUR ---
ASSUMED CARE AT APPROX 0715. PATIENT AWAKE. ORIENTED X4. VERBALIZES USING SPEAKING BOARD. DENIES PAIN. VSS. BANDAGE TO FORMER NOEL DRAIN SITE C/D/I. TRANSFERS MAX ASSIST TO . DISCHARGE EDUCATION REVIEWED WITH DATE WITH PATIENT AND HIS . NO PRESCRIPTIONS NEEDED PER HOSPITALIST FIRE EXTINGUISHER TECHNICIAN AND . MED INFO SHEET PROVIDED FOR NYSTATIN PER 'S REQUEST. PATIENT LEFT UNIT WITH [facility] APPROX 1115. ALL BELONGINGS SENT WITH . PATIENT'S 'S QUESTIONS ANSWERED, PATIENT STATED HE HAD NO QUESTIONS.
--- NOTE | 2018-11-01 13:13 | NUR ---
PT. DISCHARGED TO HOME WITH CHELO TODD LATE YESTERDAY 10/31. FAXED DC ORDERS/SUMMARY TO [facility] AND SPOKE WITH CONNOR IN ADM. SHE RECEIVED DC ORDERS AND WILL NOTIFY PT. OF TIME OF VISITS.
== END 2018-10-31 11:30 | disposition home health service (06) | DRG 57 ==
LOC: ENTRNSPT 10-31 11:14 → EDTRNSPTSTS 10-31 11:19
PROVIDERS: Internal Medicine; Nurse Practitioner; Nurse Practitioner Family; ADMIT Physical Medicine & Rehabilitation
DX: G20 Parkinson's disease (principal); E44.0 Moderate protein-calorie malnutrition; E11.9 Type 2 diabetes mellitus without complications; I10 Essential (primary) hypertension; E78.5 Hyperlipidemia, unspecified; F41.8 Other specified anxiety disorders; K21.9 Gastro-esophageal reflux disease without esophagitis; F01.50 Vascular dementia, unspecified severity, without behavioral disturbance, psychotic disturbance, mood disturbance, and anxiety; G23.1 Progressive supranuclear ophthalmoplegia [Steele-Richardson-Olszewski]; M19.90 Unspecified osteoarthritis, unspecified site; M10.9 Gout, unspecified; I48.91 Unspecified atrial fibrillation; N40.0 Benign prostatic hyperplasia without lower urinary tract symptoms; E78.00 Pure hypercholesterolemia, unspecified; K12.0 Recurrent oral aphthae; R21 Rash and other nonspecific skin eruption; Z90.49 Acquired absence of other specified parts of digestive tract; Z88.6 Allergy status to analgesic agent; Z91.81 History of falling; Z86.73 Personal history of transient ischemic attack (TIA), and cerebral infarction without residual deficits
CPT/HCPCS: 10112